=== PATIENT | male | born 1970 | race American Indian/Alaskan Native ===

== ENCOUNTER 2018-07-08 14:38 | Emergency (ER) | payer SELFPAY ==
--- NOTE | 2018-07-08 14:59 | Emergency Department Report ---
Blank Doc - Documentation Documentation: This is a 47-year-old male that presents with sensation of bugs in the groin a brant. This initial assessment/diagnostic orders/clinical plan/treatment(s) is/are subject to change based on patient's health status, clinical progression and re- assessment by fellow clinical providers in the ED. Further treatment and workup at subsequent clinical providers discretion. Patient/guardians urged not to elope from the ED as their condition may be serious if not clinically assessed a nd managed. Initial orders include: 1- Patient sent to [facility] for further evaluation and treatment
--- NOTE | 2018-07-08 17:43 | Emergency Department Report ---
ED Rash HPI - HPI Chief Complaint: Skin Rash Stated Complaint: INSECT IN SKIN Time Seen by Provider: 07/08/18 14:56 Other History: Pt is a 47 yo male who presents to the ED with c/o a rash to the pubic area that began yesterday. He states that "it feels like he has worms in the pubic area." he has associated itching. 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 he denies every having previously. He denies any penile pain, testicular pain, testicular swelling, penile discharge, or dysuria. he denies any PMHx. no allergies to medications. he states he used a "lice treatment" in the pubic area that he got over the counter. ED Review of Systems ROS: Stated complaint: INSECT IN SKIN Other details as noted in HPI Comment: All other systems reviewed and negative ED Past Medical Hx - Past Medical History Hx Hypertension: Yes Hx HIV: Yes - Surgical History Additional Surgical History: hip sx - Social History Smoking Status: Current Every Day Smoker Substance Use Type: Alcohol - Medications Home Medications: Home Medications Medication Instructions Recorded Confirmed Last Taken Type Permethrin 5% [Acticin 5% CREAM] 1 applicatio TP ONCE #1 tube 07/08/18 Unknown Rx Rash Exam - Exam General: Vital signs noted. No distress. Alert and acting appropriately. 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 He states that "it feels like he has worms in the pubic area." he has associated itching. 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 he denies every having previously. He denies any penile pain, testicular pain, testicular swelling, penile discharge, or dysuria. he denies any PMHx. no allergies to medications. he states he used a "lice treatment" in the pubic area that he got over the counter. MARCELA Lin present during examination. On examination pt has small closed comodomes consistent with a pseudofolliculitis, no erythema or signs of infection. advised pt to throw away his razor and avoiding shaving the pubic area until resolved. pt states he would like to receive lice treatment. pt given permethrin cream and discussed to use as prescribed. follow up with PCP in the next 2-3 days. return to the ED for any new or worsening symptoms. also discussed with pt the elevation in his blood pressure. pt is asymptomatic. he states he has not taken his medication in "awhile." advised pt to please see a PCP to get back on his appropriate medication. Critical care attestation.: If time is entered above; I have spent that time in minutes in the direct care of this critically ill patient, excluding procedure time. ED Disposition Clinical Impression: Pseudofolliculitis, Elevated blood pressure reading Disposition: TO HOME OR SELFCARE Is pt being admited?: No Does the pt Need Aspirin: No Condition: Stable Instructions: Folliculitis (ED) Additional Instructions: Please use cream as prescribed. Please throw away your razor. Please do not shave the groin area for the next 10 days. please follow up with a primary care doctor in the next 2-3 days. return to the emergency room for any new or worsening symptoms. Prescriptions: Permethrin 5% [Acticin 5% CREAM] 1 applicatio TP ONCE #1 tube Referrals: GENA POLLACK MD [Primary Care Provider] - 2-3 Days Time of Disposition: 17:46 Print Language: GEORGIAN
[2018-07-08 18:04] VITALS: BP 167/105
== END 2018-07-08 18:07 | disposition home or self-care (01) ==
LOC: ED 14:38
DX: L73.8 Other specified follicular disorders (principal); I10 Essential (primary) hypertension; F17.200 Nicotine dependence, unspecified, uncomplicated